=== PATIENT | female | born 1935 | race Caucasian/White ===

== ENCOUNTER 2017-02-20 12:14 | Emergency (ER) | payer OTHER, MEDICARE ==
[2017-02-20 12:38] VITALS: TEMP 98.6
--- NOTE | 2017-02-20 12:41 | EDPHY ---
H & P Stated Complaint: thumb laceration HPI/ROS: CHIEF COMPLAINT:Thumb laceration HISTORY OF PRESENT ILLNESS: This is an 81-year-old female who presents with a thumb laceration that she incurred while chopping carrots. She is left-hand dominant. The thumb laceration is on the dorsal aspect of her thumb medially. No numbness or weakness. She believes that her tetanus is up-to- date. No other injuries. REVIEW OF SYSTEMS: A ten point review of systems was performed and is negative with the exception of the items mentioned in the HPI. - Personal History Current Tetanus/Diphtheria Vaccine: Yes Current Tetanus Diphtheria and Acellular Pertussis (TDAP): Yes - Medical/Surgical History Hx Asthma: No Hx Chronic Respiratory Disease: No Hx Diabetes: No Hx Cardiac Disease: Yes Hx Renal Disease: No Hx Cirrhosis: No Hx Alcoholism: No Hx HIV/AIDS: No Hx Splenectomy or Spleen Trauma: No Other PMH: high cholesterol. hypothyroid - Social History Smoking Status: Never smoked Additional Social History: She is visiting family in [place]. No tobacco use. No alcohol use. - Physical Exam Exam: General Appearance: Alert. Vital signs reviewed. A limited exam was performed. Respiratory: Lungs are clear to auscultation; no wheezes, rales, or rhonchi. Cardiovascular: Regular rate and rhythm; no murmur, rub, or gallop. Gastrointestinal: Abdomen is soft and nontender, no masses or organomegaly, bowel sounds normal. Skin: Warm and dry, no rashes on exposed skin, normal color. Back: Nontender to palpation over the thoracolumbar spine. No CVAT. Extremities: There is a 1 cm laceration on the dorsal aspect of her right thumb distal to the DIP. Is a it is located medially and extends on to the thumb nail. There is a laceration through the medial nail, no nailbed injury. Normal strength digits of left hand, Normal sensation left thumb. No flexor or extensor tendon deficit. Neurological: Alert and oriented. Moving all four extremities easily and equally. The laceration is U shaped. Psychiatric: Normal affect. Constitutional: Initial Vital Signs Temperature (C) 37 C 02/20/17 12:35 Heart Rate 64 02/20/17 12:35 Respiratory Rate 16 02/20/17 12:35 Blood Pressure 103/74 02/20/17 12:35 O2 Sat (%) 94 02/20/17 12:35 O2 Delivery Mode Room Air Allergies/Adverse Reactions: trichloroacetic acid Allergy (Verified 02/20/17 12:38) Home Medications: Medication Instructions Recorded Timolol 02/20/17 Medical Decision Making Procedures: Procedure: Laceration repair. Verbal consent was obtained from the patient. The 1 cm laceration on the right distal thumbwas anesthetized via digital block using 1% lidocaine without epinephrine in the usual fashion. The wound was irrigated, draped and explored to its base. There were no deep structures involved. No tendon injury was identified. The wound was repaired with 4-0 nylon. Six sutures were placed. The wound repair was single layer. A small sliver of lacerated nail was removed from the medial edge of the thumb nail and the underlying nail bed was examined--no nail bed injury. The procedure was performed by myself. ED Course/Re-evaluation: Laceration repaired. The skin at the tip of the thumb was slightly dusky and she is aware that the skin of the distal tip might not be viable. Wound care instructions provided. No tendon, vascular, or nerve injury identified. Departure - Departure Disposition: Home, Routine, Self-Care Clinical Impression: Laceration of thumb with damage to nail Qualifiers: Encounter type: initial encounter Foreign body presence: without foreign body Laterality: left Qualified Code(s): S61.112A - Laceration without foreign body of left thumb with damage to nail, initial encounter Condition: Good Instructions: Finger Laceration (ED) Additional Instructions: As you know, the skin at the tip of your thumb may not live. It may scab up and fall off on its own. You will have a ridge and possibly a smaller nail on your thumb. There are 6 stitches. They need to be removed in 7 days. Do not get them wet for 24 hours. Referrals: ERMELINDA PORTER MD [Other] - As per Instructions
[2017-02-20 14:18] VITALS: BP 146/75; PULSE 60; RESP 18; O2SAT 95
== END 2017-02-20 14:18 | disposition home or self-care (01) ==
LOC: CED 12:14
PROC: 0HQGXZZ Repair Left Hand Skin, External Approach (ICD-10-PCS; principal; 2017-02-20)
DX: S61.112A Laceration without foreign body of left thumb with damage to nail, initial encounter (principal); W26.8XXA Contact with other sharp object(s), not elsewhere classified, initial encounter